=== PATIENT | male | born 1975 | race Caucasian/White ===

== ENCOUNTER 2020-01-12 18:27 | Emergency (ER) | payer BC ==
[~2020-01-12] VITALS: Ht 180.3 cm; Wt 70.3 kg
[2020-01-12 18:38] VITALS: Ht 180.3 cm; Wt 70.3 kg
[2020-01-12] MEDS ORDERED: VOLTAREN75 MG PO (19:11)
[2020-01-12 19:38] VITALS: BP 147/100
== END 2020-01-12 19:38 | disposition home or self-care (01) ==
LOC: D.ER 18:27
DX: S69.92XA Unspecified injury of left wrist, hand and finger(s), initial encounter (principal); W19.XXXA Unspecified fall, initial encounter; Y93.9 Activity, unspecified; Y92.9 Unspecified place or not applicable